=== PATIENT | male | born 1990 | race Two or more races ===

== ENCOUNTER 2019-06-12 19:38 | Emergency (ER) | payer MEDICAID ==
[~2019-06-12] VITALS: Ht 172.7 cm; Wt 81.2 kg
[2019-06-12 21:38] VITALS: BP 137/80
[2019-06-12] MEDS ORDERED: ALPRAZolam 0.5 MG TAB PO ONE (21:45)
[2019-06-12] MEDS ORDERED: PENICILLIN G BENZ 1200000 UNITS/2 ML SYRG IM ONE (21:45)
== END 2019-06-12 22:47 | disposition home or self-care (01) ==
LOC: ER 19:38
DX: T74.21XA Adult sexual abuse, confirmed, initial encounter (principal); A53.9 Syphilis, unspecified; B86 Scabies; F41.9 Anxiety disorder, unspecified; Z76.0 Encounter for issue of repeat prescription
CPT/HCPCS: 96372; 99283; J0561